=== PATIENT | female | born 1955 | race Caucasian/White ===

== ENCOUNTER 2017-07-09 07:55 | Day surgery (SDC) | payer OTHER ==
[2017-07-09] MEDS ORDERED: MIDAZOLAM 2 MG/2 ML VIAL ONE (08:24)
[2017-07-09] MEDS ORDERED: fentaNYL 100 MCG/2 ML INJ ONE (08:36)
[2017-07-09] MEDS ORDERED: REMIFENTANIL HCL 1 MG VIAL ONE (08:36)
[2017-07-09] MEDS ORDERED: PROPOFOL/EMULSION 500 MG/50 ML BOTTLE IV ONE (08:37)
[2017-07-09] MEDS ORDERED: LIDOCAINE 2% 5 ML SDV ONE (08:39)
[2017-07-09] MEDS ORDERED: ROCURONIUM 50 MG/5 ML VIAL ONE (08:40)
[2017-07-09] MEDS ORDERED: KETOROLAC 30 MG/1 ML SDV ONE (08:40)
[2017-07-09] MEDS ORDERED: GLYCOPYRROLATE 0.2 MG/1 ML VIAL ONE ×2 (08:50→09:26)
[2017-07-09] MEDS ORDERED: PHENYLEPHRINE HCL 100 MCG/ML SYR ONE (09:21)
[2017-07-09] MEDS ORDERED: BUPIVACAINE 0.5% 30 ML SDV ONE (09:41)
[2017-07-09] MEDS ORDERED: SUGAMMADEX SODIUM 200 MG/2 ML VIAL IVP ONE (09:41)
[2017-07-09] MEDS ORDERED: DEPO METHYLPREDNISOLONE 80 MG/ML SDV ONE (09:42)
[2017-07-09] MEDS ORDERED: IOPAMIDOL (ISOVUE-M 300) 15 ML VIAL ONE (09:42)
[2017-07-09] MEDS ORDERED: LIDOCAINE 1% 300 MG/30 ML SDV ONE (09:42)
== END 2017-07-09 11:20 | disposition home or self-care (01) ==
LOC: FSGY 07:55
PROVIDERS: ATTEND Radiology Diagnostic Radiology
PROC: 3E0X33Z Introduction of Anti-inflammatory into Cranial Nerves, Percutaneous Approach (ICD-10-PCS; principal; 2017-07-09 08:15)
PROC: BW191ZZ Fluoroscopy of Head and Neck using Low Osmolar Contrast (ICD-10-PCS; principal; 2017-07-09 08:15)
PROC: 3E0X3BZ Introduction of Anesthetic Agent into Cranial Nerves, Percutaneous Approach (ICD-10-PCS; principal; 2017-07-09 08:15)
DX: R68.84 Jaw pain (principal); Z86.011 Personal history of benign neoplasm of the brain
CPT/HCPCS: J1040; J1885; J2250; J2370; J2704; J3010; Q9967

== ENCOUNTER → 2019-01-27 | Outpatient (CLI) | payer OTHER | LOC: CIMAGING 13:31 | PROVIDERS: ATTEND Physician Assistant Medical | DX: Z12.31 Encounter for screening mammogram for malignant neoplasm of breast (principal); Z80.3 Family history of malignant neoplasm of breast ==

== ENCOUNTER 2019-02-10 07:54 | Day surgery (SDC) | payer OTHER ==
[2019-02-10] MEDS ORDERED: ceFAZolin 2 GM/DEXTROSE 100 ML IV ONE (08:16)
[2019-02-10] MEDS ORDERED: LR 1,000 ML IV ONE (08:17)
--- NOTE | 2019-02-10 09:27 | PDANEPAE ---
ANE History of Present Illness bladder spasms, urinary frequency, here for botox injections ANE Past Medical History - Cardiovascular History Hx Hypertension: No Hx Arrhythmias: No Hx Chest Pain: No Hx Coronary Artery / Peripheral Vascular Disease: No Hx CHF / Valvular Disease: No Hx Palpitations: No - Pulmonary History Hx COPD: No Hx Asthma/Reactive Airway Disease: No Hx Recent Upper Respiratory Infection: No Hx Oxygen in Use at Home: No Hx Sleep Apnea: No Sleep Apnea Screening Result - Last Documented: Negative Pulmonary History Comment: Exertional asthma - Neurologic History Hx Cerebrovascular Accident: No Hx Seizures: No Hx Dementia: No - Endocrine History Hx Diabetes: No - Renal History Hx Renal Disorders: No - Liver History Hx Hepatic Disorders: No - Neurological & Psychiatric Hx Hx Neurological and Psychiatric Disorders: Yes Neurological / Psychiatric History Comment: 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 Trigeminal neuralgia. Depression - Cancer History Hx Cancer: No - Congenital Disorder History Hx Congenital Disorders: No - GI History Hx Gastrointestinal Disorders: No - Other Health History Other Health History: rash under rings - Chronic Pain History Chronic Pain: Yes (knee) - Surgical History Prior Surgeries: Craniotomy 10 years ago 2008. R TKA 2018. cystoscopy 2018 ANE Review of Systems Review of Systems: - Exercise capacity METS (RN): 4 METS ANE Patient History - Allergies Allergies/Adverse Reactions: No Known Allergies Allergy (Verified 02/08/19 16:38) - Home Medications Home Medications: Lyrica 50mg (RX) 05/07/14 [Last Taken 02/09/19] Trileptal 05/07/14 [Last Taken 02/09/19] Ambien CR 12.5 mg 02/10/19 [Last Taken 02/09/19 6.25] - NPO status NPO Since - Liquids (Date): 02/09/19 NPO Since - Liquids (Time): 23:00 NPO Since - Solids (Date): 02/09/19 NPO Since - Solids (Time): 21:00 - Smoking Hx Smoking Status: Never smoked - Family Anes Hx Family Hx Anesthesia Complications: none ANE Labs/Vital Signs - Vital Signs Blood Pressure: 121/74 Heart Rate: 60 Respiratory Rate: 16 O2 Sat (%): 96 Height: 165.1 cm Weight: 62.142 kg ANE Physical Exam - Airway Neck exam: FROM Mallampati Score: Class 1 Mouth exam: normal dental/mouth exam - Pulmonary Pulmonary: no respiratory distress, no rales or rhonchi - Cardiovascular Cardiovascular: regular rate and rhythym, no murmur, rub, or gallop - ASA Status ASA Status: III ANE Anesthesia Plan Anesthesia Plan: GA with mask Total IV Anesthesia: Yes
[2019-02-10] MEDS ORDERED: MIDAZOLAM 2 MG/2 ML VIAL IVP ONE (09:28)
[2019-02-10] MEDS ORDERED: SENNOSIDES/DOCUSATE SODIUM TAB PO ONE (09:39)
--- NOTE | 2019-02-10 09:39 | PDGENHP ---
History and Physical - Chief Complaint overactive bladder - History of Present Illness 63F w bothersome urinary frequency and urgency, here for intravesical botox. No complaints. History Information - Allergies/Home Medication List Allergies/Adverse Reactions: No Known Allergies Allergy (Verified 02/08/19 16:38) Home Medications: Lyrica 50mg (RX) 05/07/14 [Last Taken 02/09/19] Trileptal 05/07/14 [Last Taken 02/09/19] Ambien CR 12.5 mg 02/10/19 [Last Taken 02/09/19 6.25] I have personally reviewed and updated: family history, medical history, social history, surgical history - Social History Smoking Status: Never smoked Review of Systems Review of Systems: ROS: 10pt was reviewed & negative except for what was stated in HPI & below Physical Exam Physical Exam: Temp Pulse Resp BP Pulse Ox 36.9 C 60 16 121/74 H 96 02/08/19 16:36 02/10/19 09:28 02/10/19 09:28 02/10/19 09:28 02/10/19 09:28 gen NAD A&O CV regular Lungs NOrmal effort Abd soft Ext warm Assessment & Plan Assessment: Nonneurogenic overactive bladder, urinary frequency, urinary urgency Plan: Cysto, 100U intravesical botox
[2019-02-10] MEDS ORDERED: LIDOCAINE 2% 100 MG/5 ML SYR ONE (09:40)
[2019-02-10] MEDS ORDERED: DEXAMETHASONE 4 MG/ML VIAL ONE (09:40)
[2019-02-10] MEDS ORDERED: ONDANSETRON 4 MG/2 ML VIAL ONE (09:40)
[2019-02-10] MEDS ORDERED: fentaNYL 100 MCG/2 ML INJ ONE ×2 (09:41→10:16)
[2019-02-10] MEDS ORDERED: PROPOFOL/EMULSION 500 MG/50 ML BOTTLE IV ONE (09:41)
[2019-02-10] MEDS ORDERED: LIDOCAINE 2% JELLY 20 ML (UROJECT) ONE (10:09)
[2019-02-10] MEDS ORDERED: OPIUM/BELLADONNA ALKALO SUPP PR ONE (10:12)
[2019-02-10] MEDS ORDERED: oxyCODONE IR 5 MG TAB PO PRN (10:17)
[2019-02-10] MEDS ORDERED: PROMETHAZINE HCL 25 MG/ML INJ IVP PRN (10:17)
[2019-02-10] MEDS ORDERED: HYDROmorphONE/DILAUDID 2 MG/ML INJ IVP PRN (10:17)
[2019-02-10] MEDS ORDERED: LR 500 ML IV PRN (10:17)
[2019-02-10] MEDS ORDERED: NALOXONE HCL 0.4 MG/ML INJ IVP PRN (10:17)
[2019-02-10] MEDS ORDERED: DIAZEPAM 5 MG/ML 1 ML SYR IVP PRN (10:17)
[2019-02-10] MEDS ORDERED: MEPERIDINE 25 MG/0.5 ML AMP IVP PRN (10:17)
[2019-02-10] MEDS ORDERED: fentaNYL 100 MCG/2 ML INJ IVP PRN (10:17)
[2019-02-10] MEDS ORDERED: ACETAMINOPHEN 500 MG TAB PO PRN (10:17)
--- NOTE | 2019-02-10 10:46 | POSTANESTH ---
Post Anesthetic Evaluation Cardiovascular Status: Normal, Stable Respiratory Status: Normal, Stable Level of Consciousness/Mental Status: Can Participate in Eval, Mildly Sleepy, Arousable Pain Control: Adequate, Prn Tx Ordered Nausea/Vomiting Control: Adequate, Prn Tx Ordered Complications Possibly Related to Anesthesia: None Noted
[2019-02-10 13:21] VITALS: BP 131/80
--- NOTE | 2019-02-10 23:38 | POSTOPPROG ---
Post Op Note Date of Operation: 02/10/19 Surgeon: Silvana Lane Anesthesiologist: Mona Anesthesia: IV Sedation Pre-op Diagnosis: urinary frequency, urgency, OAB Post-op Diagnosis: same Indication: urinary frequency, urgency, OAB Procedure: cysto, intravesical botox 100U Findings: normal bladder on cysto Inf/Abcess present in the surg proc area at time of surgery?: No EBL: Minimal Complications: None, patient tolerated well
--- NOTE | 2019-02-11 00:05 | GOP ---
[f rep st] OPERATIVE REPORT DATE OF OPERATION: 02/10/2019 SURGEON: Silvana Lane MD ANESTHESIA: IV sedation. ANESTHESIOLOGIST: PREOPERATIVE DIAGNOSIS: Urinary frequency, urinary urgency, and overactive bladder. POSTOPERATIVE DIAGNOSIS: Urinary frequency, urinary urgency, and overactive bladder. PROCEDURE PERFORMED: FINDINGS: Normal bladder on cystoscopy and nice grid-like pattern of injection of intravesical Botox . ESTIMATED BLOOD LOSS: Minimal. INDICATIONS: The patient has been diagnosed with urinary frequency and urgency secondary to nonneuro genic overactive bladder. She had intravesical Botox several months ago with good results and presen ts today for repeat treatment. Discussed again the possible need for intermittent catheterization, a nd she is willing to do this if need be. DESCRIPTION OF PROCEDURE: Patient was taken back to the cystoscopy suite, placed on the cystoscopy t able in the supine position. IV sedation anesthesia was induced without complication. Time-out perf ormed. Core measures satisfied, including placement of a Gwendolyn Hugger, SCDs and administration of 2 g Ancef antibiotics. She was brought to the end of the table, placed in a dorsal lithotomy position. All pressure points padded. Genitalia prepped and draped in the standard surgical fashion with Beta dine. A rigid cystoscope easily cannulated the urethral meatus and was advanced atraumatically into the bladder. Hauser cystoscopy performed, and the bladder mucosa was normal without any lesions, cellul es, trabeculations or abnormalities. The Botox had just previously been prepared by myself with dilu tion of 100 units of Botox into 10 mL of injectable saline. This was loaded into a 10 mL syringe and secured to the end of the [facility] intravesical Botox needle which was then advanced through the cyst oscope. I injected 200 units of Botox in a grid-like pattern, injecting 0.5 mL at each injection sit e for a total of 20 injections. When I was done with that syringe, there was still more Botox in the needle, so I injected 1 mL of injectable saline through the needle and did 2 more intravesical sites at 0.5 mL each. At this point, I looked around the bladder. Everything was hemostatic. The needle was removed. Her bladder was emptied. The scope was then removed. Lidocaine jelly placed per uret hra. At this point, the procedure was considered complete. She was awoken from anesthesia and trans ferred to PACU in good condition. COMPLICATIONS: None. The patient tolerated the procedure well. /[id number]/MODL
== END 2019-02-10 13:20 | disposition home or self-care (01) ==
LOC: FSGY 07:54
PROVIDERS: ATTEND Urology
PROC: 3E0K8GC Introduction of Other Therapeutic Substance into Genitourinary Tract, Via Natural or Artificial Opening Endoscopic (ICD-10-PCS; principal; 2019-02-10 09:15)
DX: N32.81 Overactive bladder (principal); N32.89 Other specified disorders of bladder
CPT/HCPCS: J0690; J1100; J2001; J2250; J2405; J2704; J3010